=== PATIENT | male | born 1960 | race Two or more races ===

== ENCOUNTER 2019-01-11 07:16 | Day surgery (SDC) | payer OTHER ==
[~2019-01-11] VITALS: Ht 154.9 cm; Wt 95.3 kg
[2019-01-11] MEDS ORDERED: fentaNYL 0.05 MG/ML VIAL ONE (09:39)
[2019-01-11] MEDS ORDERED: LIDOCAINE 2% 100 MG/5 ML UJET TP ONE (09:39)
[2019-01-11] MEDS ORDERED: fentaNYL 0.05 MG/ML VIAL IVP ONE (10:50)
== END 2019-01-11 11:15 | disposition home or self-care (01) ==
LOC: MDS 07:16 → MMU 07:16 → MDS 11:15
PROVIDERS: ATTEND Internal Medicine Gastroenterology
DX: R19.4 Change in bowel habit (principal); D12.3 Benign neoplasm of transverse colon; D12.7 Benign neoplasm of rectosigmoid junction; K57.30 Diverticulosis of large intestine without perforation or abscess without bleeding; K64.8 Other hemorrhoids; E66.3 Overweight; Z87.891 Personal history of nicotine dependence
CPT/HCPCS: 45385; J3010

== ENCOUNTER 2022-11-01 08:00 | Day surgery (SDC) | payer OTHER ==
[~2022-11-01] VITALS: Ht 182.9 cm; Wt 92.5 kg
[2022-11-01] MEDS ORDERED: fentaNYL citrate 0.05 MG/ML VIAL ONE (09:28)
[2022-11-01] MEDS ORDERED: LIDOCAINE 2% 100 MG/5 ML UJET TP ONE (09:29)
[2022-11-01] MEDS ORDERED: fentaNYL citrate 0.05 MG/ML VIAL IVP ONE (12:10)
== END 2022-11-01 10:20 | disposition home or self-care (01) ==
LOC: MMU 08:00 → MDS 08:00
PROVIDERS: ATTEND Internal Medicine Gastroenterology
DX: K62.5 Hemorrhage of anus and rectum (principal); K64.9 Unspecified hemorrhoids; E78.00 Pure hypercholesterolemia, unspecified; Z79.899 Other long term (current) drug therapy
CPT/HCPCS: 45330; J3010